=== PATIENT | male | born 1935 | race Caucasian/White ===

== ENCOUNTER 2017-11-01 12:19 | Inpatient (IN) | payer OTHER ==
[~2017-11-01] VITALS: Ht 172.7 cm; Wt 75.3 kg
--- NOTE | ~2017-11-01 | PROC ---
[address] [address] PROCEDURE REPORT Name: SRINIVASA NAVARRO Room: [address] ADM IN M.R.#: [id number] Admission: 11/01/17 Attend Phys: Bhavin Davis MD Discharge: Date of : 33 Report #: [id number] THIS REPORT FOR: //name// For GI procedure, please see the Provation report in Perceptive 7 content. By: 1052Medical Records Staff MIGUELITO /GREGORY
[~2017-11-01 12:19] MED LIST: BIOTIN300 MCG PO; BROMELAINS500 MG PO; CARVEDILOL25 MG PO; CENTRUM SILVER1 EAC2; CINNAMON500 MG PO; CO Q-10100 MG PO; FISH OIL 1,001000 M2 PO; POTASSIUM PO; PREDNISONE 20 M20 MG PO; QUERCETIN DIHYDR1 GM PO; VITAMIN E400 UNIT PO; VITAMINC500 PO
[2017-11-01 12:27] VITALS: BP 184/65
[2017-11-01] MEDS ORDERED: AZITHROMYCIN 2250 MG PO (12:30)
[2017-11-01] MEDS ORDERED: MEDROL DOSPAK21 TA1 PO (12:31)
[2017-11-01] MEDS ORDERED: ALLOPURINOL 10100 M1 PO (12:31)
[2017-11-01] MEDS ORDERED: CLONAZEPAM 1 MG1 M1 PO (12:38)
[2017-11-01 13:03] LABS: HEMATOCRIT 34.6 % (42.0-52.0); HEMOGLOBIN 11.3 gm/dL (14.0-18.0); MCH 27.5 pg (26.0-34.0); MCHC 32.6 g/dL (28.0-37.0); MCV 84.4 fL (80.0-100.0); NUCLEATED RBCS 0 /100WBC; PLATELET COUNT* 280 thou/uL (150-400); RBC 4.09 mil/uL (4.50-6.00); RDW-CV 15.3 % (10.5-14.5); WBC 11.3 thou/uL (4.0-11.0)
[2017-11-01 13:09] LABS: ANION GAP 8 mmol/L (7-16); BUN 25 mg/dL (7-18); CALCIUM 8.1 mg/dL (8.5-10.1); CHLORIDE 97 mmol/L (98-107); CO2 27 mmol/L (21-32); CREATININE 1.3 mg/dL (0.6-1.3); GLUCOSE 114 mg/dL (70-99); POTASSIUM 4.3 mmol/L (3.5-5.1); SODIUM 132 mmol/L (136-145)
[2017-11-01 13:15] LABS: APTT 34.5 Seconds (25.0-31.3); INR 1.1; PROTIME 10.8 Seconds (9.20-11.50)
[2017-11-01 13:17] LABS: ABSOLUTE EOSINOPHILS 0.1 thou/uL (0.0-0.7); ABSOLUTE LYMPHOCYTES 0.8 thou/uL (0.8-5.3); ABSOLUTE MONOCYTES 0.5 thou/uL (0.0-1.2); ABSOLUTE NEUTROPHILS 9.9 thou/uL (1.6-8.1)
[2017-11-01 13:18] LABS: ANISOCYTOSIS 1+; PLATELET ESTIMATE ADEQUATE; POIKILOCYTOSIS 1+
[2017-11-01 13:21] LABS: ALBUMIN 2.3 g/dL (3.4-5.0); ALKALINE PHOSPHATASE 67 U/L (46-116); NT-PRO BRAIN NAT PEPTIDE 1035 pg/mL (<300); SGOT 41 U/L (15-37); SGPT 25 U/L (30-65); TOTAL BILIRUBIN 0.6 mg/dL (<0.1-1.0); TOTAL PROTEIN 6.6 g/dL (6.4-8.2); TROPONIN-I LEVEL <0.06 ng/mL (<0.06)
[2017-11-01 14:12] LABS: URINE BILIRUBIN NEGATIVE (Negative); URINE BLOOD 1+ (Negative); URINE CLARITY CLEAR; URINE COLOR YELLOW; URINE GLUCOSE-RANDOM NEGATIVE (Negative); URINE KETONES TRACE (Negative); URINE LEUKOCYTES-REFLEX NEGATIVE (Negative); URINE NITRITE-REFLEX NEGATIVE (Negative); URINE PROTEIN 1+ (Negative); URINE SPECIFIC GRAVITY 1.015 (1.005-1.030)
[2017-11-01 14:36] LABS: SQUAMOUS 0-3 Few /LPF (0-3); URINE RBC 3-10 Few /HPF (0-2); URINE WBC-REFLEX 0-5 Rare /HPF (0-5)
[2017-11-01 14:37] LABS: BACTERIA-REFLEX None Seen /HPF (None Seen); CASTS None Seen /LPF (None Seen); CRYSTALS None Seen /LPF (None Seen)
[2017-11-01 15:48] VITALS: BP 159/56
[2017-11-01 16:00] VITALS: BP 172/50
--- NOTE | 2017-11-01 17:06 | EKG ---
[place] [address] ELECTROCARDIOGRAM REPORT Name: SRINIVASA NAVARRO Room: [address] ADM IN M.R.#: [id number] Admission: 11/01/17 Attend Phys: Bhavin Davis MD Discharge: Date of : 31 Report #: [id number] THIS REPORT FOR: //name// [facility] ED Test Date: 2017-11-01 Test Time: 12:32:27 Pat Name: SRINIVASA NAVARRO Department: Room: [facility] Gender: Bilingual Kindergarten Teacher: Jair JOHNSON : 1935 Requested By: Orestes Shrestha Order Number: [id number] MD: Pawan Sadler Measurements Intervals [place] Rate: 74 P: 56 [place]: 167 QRS: -16 QRSD: 152 T: 115 QT: 440 QTc: 489 Interpretive Statements Sinus rhythm Probable left atrial enlargement Left bundle branch block Baseline wander in lead(s) V1 Compared to ECG 09/24/2017 05:51:19 No significant changes Electronically Signed On 11-01-2017 17:06:37 VETERINARY POULTRY INSPECTOR by Pawan Sadler [email or web address] <ELECTRONICALLY SIGNED> By: Pawan Sadler MD, FAC 11/01/17 1706 1232 1232 Pawan Sadler MD, [facility] /EPI
--- NOTE | 2017-11-01 17:37 | NUR ---
PATIENT ADMITTED TO ROOM 315 FROM ER. ALERT AND ORIENTED X 4. NO COMPLAINTS OF PAIN. PHOTOS TAKEN PER PROTOCOL OF HEAD AND SHOULDER ABRASION. SCD'S IN PLACE. IVF AND SCHED ABX INFUSED. STEROIDS STARTED FOR PROPHYLAXIS FOR CT CHEST AND ABD TOMORROW. REG DIET ORDERED. FALL RISK PROTOCOL IN PLACE, PATIENT HAS HX FREQUENT FALLS. ORIENTED TO CALL LIGHT. CALL LIGHT WITHIN REACH, WILL CONTINUE TO MONITOR.
[2017-11-02] VITALS: BP 126/87
[2017-11-02 03:50] LABS: ABSOLUTE LYMPHOCYTES 0.9 thou/uL (0.8-5.3); ABSOLUTE MONOCYTES 0.7 thou/uL (0.0-1.2); ABSOLUTE NEUTROPHILS 8.5 thou/uL (1.6-8.1); HEMATOCRIT 26.9 % (42.0-52.0); HEMOGLOBIN 8.7 gm/dL (14.0-18.0); LYMPHOCYTES 9.3 %; MCH 26.6 pg (26.0-34.0); MCHC 32.2 g/dL (28.0-37.0); MCV 82.4 fL (80.0-100.0); MONOCYTES 7.1 %; MPV 8.2 fl. (7.2-11.1); NUCLEATED RBCS 0 /100WBC; PLATELET COUNT* 352 thou/uL (150-400); POLYS 83.6 %; RBC 3.27 mil/uL (4.50-6.00); RDW-CV 16.3 % (10.5-14.5); WBC 10.1 thou/uL (4.0-11.0)
[2017-11-02 03:55] LABS: CALCIUM 8.2 mg/dL (8.5-10.1); CREATININE 0.6 mg/dL (0.6-1.3); POTASSIUM 4.5 mmol/L (3.5-5.1)
--- NOTE | 2017-11-02 04:45 | NUR ---
PATIENT SLEPT WELL DURING THIS SHIFT. PT INCONTINENT OF URINE AND AT TIMES ABLE TO VOID PER URINAL. PT'S DAUGHTER AND GRANDDAUGHTER CAME IN AROUND 2230 TO HAVE DPOA PAPERWORK FILLED OUT. DAUGHTER, ISAI KIRK IS DPOA PER PT REQUEST. FLAG FOOTBALL COACH NOTORIZED PAPERWORK AND COPY PLACED ON CHART. PT AND DAUGHTER REFUSING TO HAVE CT OF ABD/PELVIC DUE TO ALLERGY TO CONTRAST. EXPLAINED TO PT AND DAUGHTER THAT DR HAS ORDERED [facility] TO COUNTERACT ANY REACTION AND PERHAPS THEY SHOULD SPEAK WITH THE DR BEFORE CANCELLING. PT INSISTED HE DID NOT WANT CT WITH CONTRAST. PT ON RA WITH SATS AT 92%. FREQUENTLY USED ITEMS AND CALL LIGHT WITHIN REACH. SIDERAILS UPX4 AND BED ALARM ON. PT TURNED Q2H PER PROTOCAL AND HEELS ELEVATED. WILL CONTINUE TO MONITOR.
[2017-11-02 08:00] VITALS: BP 126/87
--- NOTE | 2017-11-02 15:33 | NUR ---
MET WITH PT TO DISCUSS HOME SITUATION/DC PLANNING. PT LIVES WITH , IS NORMALLY INDEPENDENT AND ACTIVE. DOESN'T NORMALLY USE ANY EQUIPMENT. HE DID VOICE THAT HE'D LIKE A WALKER AT DC. HE HAS SUPPORTIVE FAMILY THAT CAN ASSIST AT DC. PT HAS NOT HAD HH IN THE PAST, DISCUSSED AND HE WOULD LIKE TO THINK ABOUT IT. IF PT NEEDS WALKER AT DC, WILL NEED TO COME THRU [place]. CONTACT AUGUSTA/DIONE AT [phone] FAX [phone] CM TO FOLLOW
[2017-11-02 16:00] VITALS: BP 141/65
--- NOTE | 2017-11-02 19:42 | NUR ---
ASSUMED CARE THIS AM. A/O X 4, DENIES DISCOMFORT, DOES REPORT NONPROD COUGH. VITAL SIGNS STABLE, UP WITH EXT ASSIST OF ONE AND GAIT BELT, UNSTEADY GAIT, GEN WEAKNESS. CAROL DIET WELL, DID HAVE BM X 1 THIS SHIFT, DIGESTED BLOOD ODOR. GI CONSULT PENDING, DROP IN HGB NOTED. BLOOD SUGAR ELEVATED @ 435, INSULIN ADMIN. CONT OF URINE, CAROL IVF WITHOUT INCIDENT, FAMILY AT BEDSIDE MOST OF THIS SHIFT.
[2017-11-02 21:24] VITALS: BP 138/44
[2017-11-02 23:59] VITALS: BP 138/44
[2017-11-03 02:05] LABS: GLYCOHEMOGLOBIN (HGB A1C) 5.9 % (4.8-5.6)
--- NOTE | 2017-11-03 04:32 | NUR ---
PATIENT SLEPT WELL DURIING THIS SHIFT. PT VOIDS PER URINAL WITH NO INCONTINENCE ON THIS SHIFT. PT ABLE TO REPOSITION HIMSELF IN BED. PT ON ROOM AIR. PT WITH FLUIDS INFUSING PER DR ORDER. BLOOD SUGAR AT HS 329; NO TX ORDERED. DAUGHTER CALLED AND WANTED PT WATCHED FOR WITHDRAWALS FROM SOLUMEDRAL STATING HE GETS VERY PARANOID AND AGITATED. PT WAS CALM AND COOPERATIVE DURING THIS SHIFT. FREQUENTLY USED ITEMS AND CALL LIGHT WITHIN REACH. SIDERAILS UPX4 AND BED ALARM ON. WILL CONTINUE TO MONITOR.
[2017-11-03 09:30] VITALS: BP 132/58
[2017-11-03 10:45] LABS: HEMATOCRIT 34.3 % (42.0-52.0); MCHC 32.2 g/dL (28.0-37.0); MCV 83.8 fL (80.0-100.0); MPV 7.6 fl. (7.2-11.1); NUCLEATED RBCS 0 /100WBC; PLATELET COUNT* 315 thou/uL (150-400); RDW-CV 15.4 % (10.5-14.5); WBC 21.6 thou/uL (4.0-11.0)
[2017-11-03 10:46] LABS: HEMOGLOBIN 11.1 gm/dL (14.0-18.0)
[2017-11-03 10:55] LABS: CREATININE 1.3 mg/dL (0.6-1.3); POTASSIUM 3.8 mmol/L (3.5-5.1); TOTAL BILIRUBIN 0.2 mg/dL (<0.1-1.0); TOTAL PROTEIN 6.2 g/dL (6.4-8.2)
[2017-11-03 11:05] LABS: ABSOLUTE LYMPHOCYTES 1.1 thou/uL (0.8-5.3); ABSOLUTE NEUTROPHILS 20.5 thou/uL (1.6-8.1); PLATELET ESTIMATE ADEQUATE
[2017-11-03 16:00] VITALS: BP 122/53
--- NOTE | 2017-11-03 16:51 | NUR ---
PATIENT UP TO CHAIR THIS AM AND AFTERNOON. WALKER AND GAIT BELT UTILZED. IV TO RAC LEAKING THIS AM, REPLACED TO LEFT WRIST SL. OCCULT BLOOD NEGATIVE, DR. LAKE NOTIFIED OF INCREASED HGB. PATIENT TO HAVE EGD ON SATURDAY. NO COMPLAINTS OF PAIN THIS SHIFT. FAMILY HERE THIS MORNING AND AFTERNOON VISITING.
[2017-11-03 21:05] VITALS: BP 131/83
--- NOTE | 2017-11-04 05:22 | NUR ---
PATIENT SLEPT WELL DURING THIS SHIFT. PT ALERT/ORIENTED X4. PT IS CALM AND PLEASANT. PT VOIDS PER URINAL. PT VOIDS PER URINAL. PT IS ON ROOM AIR. PT DENIES NEEDS AT THIS TIME. FREQUENTLY USED ITEMS AND CALL LIGHT WITHIN REACH. SIDERALS UPX4 AND BED ALARM ON. WILL CONTINUE TO MONITOR.
[2017-11-04 07:19] LABS: ABSOLUTE LYMPHOCYTES 1.3 thou/uL (0.8-5.3); ABSOLUTE MONOCYTES 0.5 thou/uL (0.0-1.2); ABSOLUTE NEUTROPHILS 8.9 thou/uL (1.6-8.1); BASOPHILS 0.2 %; EOSINOPHILS 0.2 %; HEMATOCRIT 31.3 % (42.0-52.0); HEMOGLOBIN 10.4 gm/dL (14.0-18.0); LYMPHOCYTES 11.8 %; MCH 27.9 pg (26.0-34.0); MCHC 33.2 g/dL (28.0-37.0); MCV 84.2 fL (80.0-100.0); MONOCYTES 4.6 %; NUCLEATED RBCS 0 /100WBC; PLATELET COUNT* 313 thou/uL (150-400); POLYS 83.2 %; RBC 3.72 mil/uL (4.50-6.00); RDW-CV 15.3 % (10.5-14.5); WBC 10.7 thou/uL (4.0-11.0)
[2017-11-04 07:34] LABS: PREALBUMIN 13.6 mg/dL (18.0-35.7)
[2017-11-04 07:38] LABS: ALBUMIN 1.8 g/dL (3.4-5.0); CALCIUM 7.6 mg/dL (8.5-10.1); CREATININE 1.5 mg/dL (0.6-1.3); POTASSIUM 4.1 mmol/L (3.5-5.1); TOTAL BILIRUBIN 0.2 mg/dL (<0.1-1.0); TOTAL PROTEIN 5.6 g/dL (6.4-8.2)
[2017-11-04 07:50] VITALS: BP 146/59
[2017-11-04 16:00] VITALS: BP 108/51
--- NOTE | 2017-11-04 16:36 | NUR ---
PATIENT A&OX4, ROOM AIR, NO IV ACCESS AT THIS TIME. UP WITH ASSISTX1 WITH WALKER AND GAITBELT.NO C/O PAIN/N/V. C/O SORE SWOLLEN THROAT, COUGHT DROPS PROVIDED. NO OTHER CONCERNS AT THIS TIME. APPROPRIATE AND COOPORATIVE WITH CARE.
[2017-11-04 20:15] VITALS: BP 165/59
[2017-11-05 04:01] VITALS: BP 173/61
[2017-11-05 04:06] LABS: HEMATOCRIT 32.4 % (42.0-52.0); HEMOGLOBIN 10.7 gm/dL (14.0-18.0); MCH 27.6 pg (26.0-34.0); MCHC 32.9 g/dL (28.0-37.0); MCV 83.6 fL (80.0-100.0); MPV 7.4 fl. (7.2-11.1); PLATELET COUNT* 339 thou/uL (150-400); RBC 3.88 mil/uL (4.50-6.00); RDW-CV 15.3 % (10.5-14.5); WBC 11.7 thou/uL (4.0-11.0)
--- NOTE | 2017-11-05 06:45 | NUR ---
PT SLEPT MOST OF SHIFT. ASSESSMENT DOCUMENTED. MEDS GIVEN PER E-MAR. PT REPORTED PAIN IN HIS SHOULDERS AND HANDS, STATING THAT HE WAS "HAVING A GOUT FLARE UP". ORDERS RECIEVED FOR PAIN MEDS AND GIVEN PER E-MAR. NO CONCERNS AT THIS TIME, WILL CONTINUE TO MONTIOR.
[2017-11-05 07:45] VITALS: BP 154/59
[2017-11-05 11:30] VITALS: BP 154/59
[2017-11-05 14:12] LABS: ALBUMIN 2.2 g/dL (3.4-5.0); CALCIUM 7.6 mg/dL (8.5-10.1); CREATININE 1.2 mg/dL (0.6-1.3); POTASSIUM 4.7 mmol/L (3.5-5.1); TOTAL BILIRUBIN 0.2 mg/dL (<0.1-1.0); TOTAL PROTEIN 5.2 g/dL (6.4-8.2); URIC ACID* 2.9 mg/dL (2.6-7.2)
--- NOTE | 2017-11-05 15:00 | NUR ---
MET WITH PT., AND SON TO DISCUSS DISCHARGE PLANNING. PT.FEELS HE NEEDS TO GO TO A SNF TO GET STRONGER BEFORE GOING HOME. HE WOULD LIKE TO GO TO [facility]. SPOKE WITH GORDON AND FAXED HER REFERRAL. POSSIBLE DISCHARGE TOMRROW.
[2017-11-05 15:03] LABS: ABSOLUTE LYMPHOCYTES 0.6 thou/uL (0.8-5.3); ABSOLUTE MONOCYTES 0.2 thou/uL (0.0-1.2); ABSOLUTE NEUTROPHILS 10.9 thou/uL (1.6-8.1); MYELOCYTES 2 %; PROMYELOCYTES 1 %
[2017-11-05 15:05] LABS: ANISOCYTOSIS Occasional; LARGE PLATELETS RARE; PLATELET ESTIMATE ADEQUATE; TOXIC GRANULATION 2+
[2017-11-05 15:57] VITALS: BP 141/65
--- NOTE | 2017-11-05 17:16 | NUR ---
PATIENT A&OX4, ROOM AIR, IV LEFT HAND SALINE LOCK. UP WITH ASSISTX1 WITH WALKER AND GAITBELT. C/O PAIN IN RIGHT HAND RADIATING UP TO RIGHT SHOULDER. PATIENT STATES PAIN IN DO TO GOUT FLAIR UP. PARTIAL RELIEF WITH MEDICATION. NO OTHR CONCERNS AT THIS TIME. APPROPRIATE AND COOPORATIVE WITH CARE.
[2017-11-05 23:29] VITALS: BP 136/53
[2017-11-06 04:49] LABS: ABSOLUTE EOSINOPHILS 0.1 thou/uL (0.0-0.7); ABSOLUTE LYMPHOCYTES 0.8 thou/uL (0.8-5.3); ABSOLUTE MONOCYTES 0.4 thou/uL (0.0-1.2); ABSOLUTE NEUTROPHILS 8.9 thou/uL (1.6-8.1); BASOPHILS 0.3 %; EOSINOPHILS 0.8 %; HEMATOCRIT 31.4 % (42.0-52.0); HEMOGLOBIN 10.4 gm/dL (14.0-18.0); LYMPHOCYTES 7.7 %; MCHC 33.3 g/dL (28.0-37.0); MCV 84.1 fL (80.0-100.0); MONOCYTES 4.1 %; MPV 7.6 fl. (7.2-11.1); NUCLEATED RBCS 0 /100WBC; PLATELET COUNT* 319 thou/uL (150-400); POLYS 87.1 %; RBC 3.74 mil/uL (4.50-6.00); RDW-CV 15.6 % (10.5-14.5); WBC 10.2 thou/uL (4.0-11.0)
[2017-11-06 04:54] LABS: CALCIUM 7.8 mg/dL (8.5-10.1); CREATININE 1.2 mg/dL (0.6-1.3); POTASSIUM 4.4 mmol/L (3.5-5.1)
--- NOTE | 2017-11-06 05:20 | NUR ---
PT SLEPT WELL AFTER RECEIVING HYDROCODONE AT HS. UP TO BSC TO VOID AT HS. HS ACCUCHECK 208, NO INSULIN ORDERED. AM LABS DRAWN. L HAND SL, ABX GIVEN. AOX4. CALL LITE IN EASY REACH, BED ALARM ON FOR SAFETY, ABLE TO USE CALL LITE AND MAKE NEEDS KNOWN. PT ANTICIPATING DISCHARGE HOME TODAY. USING URINAL TO VOID OVERNIGHT.
[2017-11-06 05:29] LABS: PREALBUMIN 15.8 mg/dL (18.0-35.7)
[2017-11-06 09:10] VITALS: BP 166/68
[2017-11-06] MEDS ORDERED: IRON325 PO (12:45)
[2017-11-06] MEDS ORDERED: FLONASE 0.05%50 MCG NASAL (12:46)
[2017-11-06] MEDS ORDERED: MIRALAX17 GM PO (12:48)
[2017-11-06] MEDS ORDERED: PROTONIX40 M1 PO (12:49)
[2017-11-06] MEDS ORDERED: TESSALON PERLE100 MG PO (12:50)
[2017-11-06 12:53] VITALS: BP 166/68
[2017-11-06] MEDS ORDERED: LEVAQUIN 500 M500 M2 PO (13:34)
--- NOTE | 2017-11-06 14:08 | NUR ---
SPOKE WITH ALFREDO AT [facility], THEY HAVE A BED AND CAN ACCEPT PT TODAY INTO A SNF BED, PENDING INSURANCE AUTH. SHE HOPES TO HAVE INSURANCE AUTH THIS AFTERNOON. NURSING UPDATED. [facility] [phone] FAX [phone]
--- NOTE | 2017-11-06 14:40 | S ---
[address] [address] SURGICAL PATH RPT PROCEDURE Name: NORBERT NOLASCO Room: [address] IN M.R.#: [id number] Admission: 11/01/17 Date of : 33 Discharge: Report #: [id number] Path Case #: [id number] PATHOLOGY REPORT COLLECTION DATE: 11/05/2017 RECEIVED DATE: 11/05/2017 SUBMITTING PHYS: Dr. Antoni Jorgensen OTHER PHYS: Dr. Bhavin Barfield SPECIMEN(S) RECEIVED: A.Duodenal biopsy B.Antral erosion biopsy for H. pylori * * * * * * * * * * * * FINAL DIAGNOSIS: A. Duodenal biopsy: - Mild, nonspecific active duodenitis, negative for granulomas and dysplasia. B. Antral erosion biopsy: - Mild chronic antral gastritis, typical of reactive gastropathy (chemical gastritis), negative for Helicobacter pylori organisms, granulomas and dysplasia. (CHERYL:pit; 11/06/2017) COMMENT: Special stain: H. pylori immuno on B. PATHOLOGIST: Rip Rojas M.D. REPORT ELECTRONICALLY SIGNED BY: Rip Rojas M.D. DATE/TIME: 11/06/2017 14:40 * * * * * * * * * * * * GROSS PATHOLOGY: A. Received in formalin labeled "Norbert Nolasco and duodenal biopsy," is a segment of morris soft tissue measuring 0.5 cm in maximum dimension. The specimen is submitted entirely in cassette A1. B. The specimen is received in formalin, labeled "Norbert Nolasoc and antral erosion biopsy", are two morris soft tissue 0.7 and 0.5 cm in greatest dimension, entirely submitted in B1. (SWS; 11/05/2017) CLINICAL HISTORY: Rule out H. pylori INITIAL CPT CODE(S): [place] [address] SURGICAL PATH RPT PROCEDURE Name: NORBERT NOLASCO Room: [address] IN ..#: [id number] Admission: 11/01/17 Date of : 33 Discharge: Report #: [id number] Path Case #: [id number] A; [id number] B; [id number], [id number] Professional services performed by [facility] at [facility] [address] [place] [address] Technical services performed by [facility] at [address] [place] [address], [facility] [address], [place] [address]. [facility] [place] [address] PHONE: [phone] DIRECTOR: Victoriano Aldridge M.D. * * * END OF REPORT * * *
--- NOTE | 2017-11-06 20:00 | NUR ---
PATIENT IS ALERT AND ORIENTED UP STAND BY TO BEDSIDE COMMODE OR USING URINAL AT BEDSIDE. PATIENT HAS HAD NO PAIN TODAY AND VITAL SIGNS HAVE BEEN STABLE TODAY ON ROOM AIR. PATIENT WAS ACCEPTED TO [facility] TODAY BUT THE MESSAGE WAS NOT RECIEVED UNTIL AFTER 1729 AND NO TRANSPORTATION WAS SET UP, SINCE WAITING ON INSURANCE APPROVAL. ALFREDO FROM [facility] ADMISSIONS SAID TO HAVE CASE MANAGEMENT CONTACT ALFREDO TOMORROW.
[2017-11-07] VITALS: BP 140/71
--- NOTE | 2017-11-07 05:58 | NUR ---
PT SLEPT ON AND OFF OVERNIGHT. DENIES PAIN OR PROBLEMS, ANTICIPATING DISCHARGE TO [facility] FOR REHAB TODAY. UP WITH ASSIST AND WALKER, USING URINAL TO VOID OVERNIGHT. NO LABS THIS MORNING. HS ACCUCHECK 328 INSULIN GIVEN AT THAT TIME DUE TO INSULIN NOT BEING GIVEN AT [facility]NER BECAUSE OF EMERGENT SITUATION ON UNIT. NO IV ACCESS. ABLE TO USE CALL LITE AND MAKE NEEDS KNOWN.
--- NOTE | 2017-11-07 08:30 | NUR ---
SPOKE WITH ALFREDO AT [facility], THEY HAVE INSURANCE AUTH AND CAN TAKE PT TODAY. THEIR W/C VAN CAN COME GET PT AT 1130 TODAY. SW NOTIFIED AND WILL LET NURSING KNOW OF TIME OF PICK-UP. CHART WAS COPIED YESTERDAY TO GO WITH PATIENT.
[2017-11-07 08:55] VITALS: BP 176/78
[2017-11-07 11:12] VITALS: BP 176/78
--- NOTE | 2017-11-19 16:26 | CON ---
[address] [address] CONSULTATION Name: SRINIVASA NAVARRO Room: [address] IN M.R.#: [id number] Admission: 11/01/17 Attend Phys: Bhavin Davis MD Discharge: 11/07/17 Date of : 33 Report #: [id number] THIS REPORT FOR: //name// CC: Bhavin Barfield DATE OF SERVICE: 11/03/2017 REASON FOR CONSULT: Iron deficiency anemia. This is an 82-year-old male who was admitted to hospital after he was discharged less than a week ago. He presented with weakness and frequent falls. In his previous admission, he had productive cough and was receiving antibiotics. The patient reports that after taking his second fall 2 nights in a row, his kids decided to bring him to the hospital. During hospitalization, he was found to have an iron deficiency anemia. His hemoglobin has been stable at 11, but his iron saturation is 5. His B12 and folic acid are within normal limits. He denies hematochezia, melena, upper GI symptoms including nausea, vomiting, dyspepsia, dysphagia and odynophagia. PAST MEDICAL HISTORY: Significant for history of heart disease, hemorrhoid operation, gout, sinus infection, TURP, and anxiety. ALLERGIES: Significant to contrast and diphenhydramine. MEDICATION: Please refer to hospital MAR. SOCIAL HISTORY: The patient lives at home with his . Denies tobacco or alcohol use. FAMILY HISTORY: Noncontributory. PHYSICAL EXAMINATION: VITAL SIGNS: Reveals blood pressure of 132/58, pulse of 63, respirations 18, temperature 97.5. LUNGS: Clear. CARDIOVASCULAR: Regular. ABDOMEN: Soft, nontender, nondistended. Bowel sounds are positive. NEUROLOGIC: The patient is alert, oriented x 3. LABS: Reveal sodium of 134, potassium 3.8, BUN is 30, creatinine 1.3, glucose is 304. Liver function tests all within normal limits. Albumin is 2.0. BNP is 1035. Iron saturation is 5%, iron level is 14, INR is 1.1. WBC is 21.6 with hemoglobin of 11.1 and platelets of 315. IMAGING: CT of abdomen and pelvis was obtained in admission. [place] [address] CONSULTATION Name: [facility] Room: [address] IN [facility].#: [id number] Admission: 11/01/17 Attend Phys: Bhavin Davis MD Discharge: 11/07/17 Date of : 33 Report #: [id number] acute process noted. ASSESSMENT AND PLAN: The patient with iron deficiency anemia who reports he had a colonoscopy several years ago. Since he has heme-negative stools, we will consider upper endoscopy prior to his discharge. Meanwhile, we will resolve his leukocytosis and replace his iron. I explained to him that iron can make him more constipated. So, he may want to take a bowel regimen with it. <ELECTRONICALLY SIGNED> By: Antoni Jorgensen MD 11/19/17 1626 1357 [id number] Jorgensen MD /nt
== END 2017-11-07 11:30 | DRG 177 ==
LOC: M.ERS 12:19 → M.3W 15:07 → M.TBA-ER 15:07 → M.3W 15:47
PROVIDERS: Emergency Medicine; Internal Medicine Gastroenterology; ADMIT Internal Medicine
PROC: 0DB68ZX Excision of Stomach, Via Natural or Artificial Opening Endoscopic, Diagnostic (ICD-10-PCS; principal; 2017-11-05)
PROC: 0DB98ZX Excision of Duodenum, Via Natural or Artificial Opening Endoscopic, Diagnostic (ICD-10-PCS; principal; 2017-11-05)
DX: J15.6 Pneumonia due to other Gram-negative bacteria (principal); K26.4 Chronic or unspecified duodenal ulcer with hemorrhage; G93.40 Encephalopathy, unspecified; K29.71 Gastritis, unspecified, with bleeding; E87.1 Hypo-osmolality and hyponatremia; J44.1 Chronic obstructive pulmonary disease with (acute) exacerbation; J01.91 Acute recurrent sinusitis, unspecified; M10.9 Gout, unspecified; F41.9 Anxiety disorder, unspecified; D50.9 Iron deficiency anemia, unspecified; E86.0 Dehydration; M19.90 Unspecified osteoarthritis, unspecified site; K21.0 Gastro-esophageal reflux disease with esophagitis; K44.9 Diaphragmatic hernia without obstruction or gangrene; Z88.8 Allergy status to other drugs, medicaments and biological substances; Z91.041 Radiographic dye allergy status; Z79.899 Other long term (current) drug therapy

== ENCOUNTER 2018-01-01 10:48 | Emergency (ER) | payer OTHER ==
[~2018-01-01] VITALS: Ht 172.7 cm; Wt 90.7 kg
[~2018-01-01 10:48] MED LIST changes: +ALLOPURINOL 10100 M1 PO; +AZITHROMYCIN 2250 MG PO; +CLONAZEPAM 1 MG1 M1 PO; +FLONASE 0.05%50 MCG NASAL; +IRON325 PO; +LEVAQUIN 500 M500 M2 PO; +MEDROL DOSPAK21 TA1 PO; +MIRALAX17 GM PO; +PROTONIX40 M1 PO; +TESSALON PERLE100 MG PO
[2018-01-01] MEDS ORDERED: PREDNISONE 5 MG5 M1 PO (11:00)
[2018-01-01 11:18] LABS: HEMATOCRIT 32.6 % (42.0-52.0); HEMOGLOBIN 10.8 gm/dL (14.0-18.0); MCH 28.4 pg (26.0-34.0); MCHC 33.3 g/dL (28.0-37.0); MCV 85.5 fL (80.0-100.0); MPV 7.5 fl. (7.2-11.1); NUCLEATED RBCS 0 /100WBC; PLATELET COUNT* 269 thou/uL (150-400); RBC 3.81 mil/uL (4.50-6.00); RDW-CV 16.6 % (10.5-14.5); WBC 11.3 thou/uL (4.0-11.0)
[2018-01-01 11:23] LABS: ANION GAP 7 mmol/L (7-16); BUN 31 mg/dL (7-18); CALCIUM 8.3 mg/dL (8.5-10.1); CHLORIDE 98 mmol/L (98-107); CO2 28 mmol/L (21-32); CREATININE 1.3 mg/dL (0.6-1.3); GLUCOSE 172 mg/dL (70-99); POTASSIUM 3.9 mmol/L (3.5-5.1); SODIUM 133 mmol/L (136-145)
[2018-01-01 11:24] LABS: APTT 29.9 Seconds (25.0-31.3)
[2018-01-01 11:33] LABS: ABSOLUTE LYMPHOCYTES 6.1 thou/uL (0.8-5.3); ABSOLUTE MONOCYTES 0.5 thou/uL (0.0-1.2); ABSOLUTE NEUTROPHILS 4.7 thou/uL (1.6-8.1); ATYPICAL LYMPHS 4 %; PLATELET ESTIMATE ADEQUATE
[2018-01-01 11:34] LABS: ALBUMIN 2.7 g/dL (3.4-5.0); ALKALINE PHOSPHATASE 59 U/L (46-116); NT-PRO BRAIN NAT PEPTIDE 1558 pg/mL (<300); SGOT 18 U/L (15-37); SGPT 14 U/L (30-65); TOTAL BILIRUBIN 0.3 mg/dL (<0.1-1.0); TOTAL PROTEIN 6.6 g/dL (6.4-8.2); TROPONIN-I LEVEL <0.06 ng/mL (<0.06)
[2018-01-01 12:05] LABS: URINE BILIRUBIN NEGATIVE (Negative); URINE BLOOD NEGATIVE (Negative); URINE CLARITY CLEAR; URINE COLOR YELLOW; URINE GLUCOSE-RANDOM NEGATIVE (Negative); URINE KETONES NEGATIVE (Negative); URINE LEUKOCYTES-REFLEX NEGATIVE (Negative); URINE NITRITE-REFLEX NEGATIVE (Negative); URINE PROTEIN NEGATIVE (Negative); URINE UROBILINOGEN 0.2 E.U./dl (0.2-1.0)
[2018-01-01 13:46] VITALS: BP 145/70
--- NOTE | 2018-01-01 16:38 | EKG ---
[place] [address] ELECTROCARDIOGRAM REPORT Name: MELANIESRINIVASA [id number] Admission: 01/01/18 Attend Phys: Discharge: 01/01/18 Date of : 33 Report #: [id number] THIS REPORT FOR: //name// [facility] Test Date: 2018-01-01 Test Time: 11:07:23 Pat Name: SRINIVASA NAVARRO Department: Room: Gender: M Seafood Fisherman: Jair JOHNSON : 1935 Requested By: Aram Zhang Order Number: [id number] MD: Davie Ennis Measurements Intervals [place] Rate: 55 P: 27 AL: 175 QRS: -24 QRSD: 156 T: 140 QT: 461 QTc: 441 Interpretive Statements Sinus bradycardia Ventricular premature complex Left bundle branch block Compared to ECG 11/01/2017 12:32:27 Ventricular premature complex(es) now present Electronically Signed On 01-01-2018 16:38:35 IT BUSINESS ANALYST by Davie Ennis [email or web address] <ELECTRONICALLY SIGNED> By: Davie Ennis MD, [facility] 01/01/18 1638 1107 06 Davie Ennis MD, [facility] /EPI
== END 2018-01-01 13:49 | disposition short-term general hospital (02) ==
LOC: M.ERS 10:48
PROVIDERS: Family Medicine
DX: I62.00 Nontraumatic subdural hemorrhage, unspecified (principal); M10.9 Gout, unspecified; Z91.041 Radiographic dye allergy status; Z88.8 Allergy status to other drugs, medicaments and biological substances

== ENCOUNTER 2018-01-31 21:29 | Emergency (ER) | payer OTHER ==
[~2018-01-31] VITALS: Ht 170.2 cm; Wt 78.9 kg
[~2018-01-31 21:29] MED LIST changes: +PREDNISONE 5 MG5 M1 PO
[2018-01-31] MEDS ORDERED: MAGOX 400400 MG PO (21:50)
[2018-01-31] MEDS ORDERED: CLONAZEPAM 1 MG1 M1 PO (21:50)
[2018-01-31] MEDS ORDERED: FOLIC ACID1 MG PO (21:50)
[2018-01-31] MEDS ORDERED: METFORMIN HCL500 MG PO (21:51)
[2018-01-31] MEDS ORDERED: PREDNISONE 5 MG5 M1 PO (21:52)
[2018-01-31] MEDS ORDERED: PROTONIX40 M1 PO (21:52)
[2018-01-31] MEDS ORDERED: PROBIOTIC1 EAC1 PO (21:53)
[2018-01-31] MEDS ORDERED: VITAMIN D3400 UNIT PO (21:53)
[2018-01-31] MEDS ORDERED: DOXYCYCLINE 10100 MG PO (21:53)
[2018-01-31] MEDS ORDERED: KEPPRA750 MG PO (21:54)
[2018-01-31] MEDS ORDERED: IPRAT-ALBUT 0.5-3 ML IH (21:54)
[2018-01-31] MEDS ORDERED: TYLENOL325 MG PO (21:54)
[2018-01-31] MEDS ORDERED: DILANTIN100 MG PO (21:54)
[2018-01-31] MEDS ORDERED: GABAPENTIN 100100 MG PO (21:55)
[2018-01-31] MEDS ORDERED: LASIX 40 MG TAB40 M2 PO (21:55)
[2018-01-31] MEDS ORDERED: ROBAXIN 750 MG750 M1 PO (21:55)
[2018-01-31 22:09] LABS: HEMATOCRIT 33.7 % (42.0-52.0); HEMOGLOBIN 11.1 gm/dL (14.0-18.0); MCH 28.1 pg (26.0-34.0); MCHC 33.1 g/dL (28.0-37.0); MCV 84.8 fL (80.0-100.0); MPV 6.7 fl. (7.2-11.1); NUCLEATED RBCS 0 /100WBC; PLATELET COUNT* 318 thou/uL (150-400); RBC 3.97 mil/uL (4.50-6.00); RDW-CV 16.5 % (10.5-14.5); WBC 12.5 thou/uL (4.0-11.0)
[2018-01-31 22:27] LABS: ANION GAP 9 mmol/L (7-16); BUN 33 mg/dL (7-18); CALCIUM 8.6 mg/dL (8.5-10.1); CHLORIDE 99 mmol/L (98-107); CO2 30 mmol/L (21-32); CREATININE 1.7 mg/dL (0.6-1.3); GLUCOSE 197 mg/dL (70-99); SODIUM 138 mmol/L (136-145)
[2018-01-31 22:32] LABS: ABSOLUTE BASOPHILS 0.1 thou/uL (0.0-0.2); ABSOLUTE EOSINOPHILS 0.3 thou/uL (0.0-0.7); ABSOLUTE MONOCYTES 0.4 thou/uL (0.0-1.2); ABSOLUTE NEUTROPHILS 10.8 thou/uL (1.6-8.1)
[2018-01-31 22:33] LABS: PLATELET ESTIMATE ADEQUATE
[2018-01-31 22:38] LABS: ALBUMIN 2.8 g/dL (3.4-5.0); ALKALINE PHOSPHATASE 116 U/L (46-116); NT-PRO BRAIN NAT PEPTIDE 563 pg/mL (<300); SGOT 23 U/L (15-37); SGPT 27 U/L (30-65); TOTAL BILIRUBIN 0.2 mg/dL (<0.1-1.0); TOTAL PROTEIN 6.8 g/dL (6.4-8.2); TROPONIN-I LEVEL <0.06 ng/mL (<0.06)
[2018-01-31 23:22] LABS: URINE BILIRUBIN NEGATIVE (Negative); URINE BLOOD TRACE (Negative); URINE CLARITY CLEAR; URINE COLOR YELLOW; URINE GLUCOSE-RANDOM NEGATIVE (Negative); URINE KETONES NEGATIVE (Negative); URINE LEUKOCYTES-REFLEX NEGATIVE (Negative); URINE NITRITE-REFLEX NEGATIVE (Negative); URINE PROTEIN NEGATIVE (Negative); URINE UROBILINOGEN 0.2 E.U./dl (0.2-1.0)
[2018-02-01] MEDS ORDERED: RESTORIL15 M1 PO (00:20)
[2018-02-01 00:34] VITALS: BP 165/67
--- NOTE | 2018-02-01 12:38 | EKG ---
[place] [address] ELECTROCARDIOGRAM REPORT Name: SRINIVASA NAVARRO [facility] [id number] Admission: 01/31/18 Attend Phys: Discharge: 02/01/18 Date of : 33 Report #: [id number] THIS REPORT FOR: //name// [facility] ED Test Date: 2018-01-31 Test Time: 22:07:56 Pat Name: SRINIVASA NAVARRO Department: Room: Gender: M Quarryman: CHANI : 1935 Requested By: Johnna Santoyo Order Number: [id number] MD: Flynn Wagner Measurements Intervals [place] Rate: 77 P: 42 [place]: 186 QRS: -18 QRSD: 145 T: 171 QT: 408 QTc: 462 Interpretive Statements Sinus rhythm Probable left atrial enlargement Left bundle branch block Compared to ECG 01/01/2018 11:07:23 Sinus bradycardia no longer present Ventricular premature complex(es) no longer present Electronically Signed On 02-01-2018 12:38:40 CDT by Flynn Wagner [email or web address] <ELECTRONICALLY SIGNED> By: Flynn Wagner MD, FAC 02/01/18 1238 06 06 Flynn Wagner MD, [facility] /EPI
== END 2018-02-01 00:35 | disposition home or self-care (01) ==
LOC: M.ERS 21:29
PROVIDERS: Nurse Practitioner
DX: M25.512 Pain in left shoulder (principal); F51.01 Primary insomnia; Z91.041 Radiographic dye allergy status; Z88.8 Allergy status to other drugs, medicaments and biological substances

== ENCOUNTER 2018-02-28 16:12 | Emergency (ER) | payer OTHER ==
[~2018-02-28] VITALS: Ht 170.2 cm; Wt 78.9 kg
[~2018-02-28 16:12] MED LIST changes: +DILANTIN100 MG PO; +DOXYCYCLINE 10100 MG PO; +FOLIC ACID1 MG PO; +GABAPENTIN 100100 MG PO; +IPRAT-ALBUT 0.5-3 ML IH; +KEPPRA750 MG PO; +LASIX 40 MG TAB40 M2 PO; +MAGOX 400400 MG PO; +METFORMIN HCL500 MG PO; +PROBIOTIC1 EAC1 PO; +RESTORIL15 M1 PO; +ROBAXIN 750 MG750 M1 PO; +TYLENOL325 MG PO; +VITAMIN D3400 UNIT PO
[2018-02-28] MEDS ORDERED: CELERY SEED PO (16:48)
[2018-02-28] MEDS ORDERED: CYCLOBENZAPRINE5 MG PO (16:49)
[2018-02-28 16:51] LABS: HEMATOCRIT 37.1 % (42.0-52.0); HEMOGLOBIN 12.1 gm/dL (14.0-18.0); MCH 28.1 pg (26.0-34.0); MCHC 32.6 g/dL (28.0-37.0); MCV 86.2 fL (80.0-100.0); MPV 7.6 fl. (7.2-11.1); NUCLEATED RBCS 0 /100WBC; PLATELET COUNT* 245 thou/uL (150-400); RDW-CV 16.9 % (10.5-14.5); WBC 12.3 thou/uL (4.0-11.0)
[2018-02-28] MEDS ORDERED: METHOTREXATE 22.5 MG PO (16:51)
[2018-02-28] MEDS ORDERED: TURMERIC PO (16:53)
[2018-02-28] MEDS ORDERED: VOLTAREN GEL 1100 G2 TOP (16:55)
[2018-02-28] MEDS ORDERED: COLACE100 MG PO (16:55)
[2018-02-28] MEDS ORDERED: IBUPROFEN 200200 M1 PO (16:57)
[2018-02-28] MEDS ORDERED: MIRALAX17 GM PO (16:59)
[2018-02-28 17:00] LABS: ANION GAP 9 mmol/L (7-16); BUN 33 mg/dL (7-18); CALCIUM 8.7 mg/dL (8.5-10.1); CHLORIDE 103 mmol/L (98-107); CO2 29 mmol/L (21-32); CREATININE 1.4 mg/dL (0.6-1.3); GLUCOSE 113 mg/dL (70-99); SODIUM 141 mmol/L (136-145)
[2018-02-28] MEDS ORDERED: PREPARATION H C51 G1 TOP (17:00)
[2018-02-28] MEDS ORDERED: ACCU-CHEK1 EAC1 (17:02)
[2018-02-28 17:10] LABS: ALBUMIN 3.2 g/dL (3.4-5.0); ALKALINE PHOSPHATASE 91 U/L (46-116); LIPASE 168 U/L (73-393); NT-PRO BRAIN NAT PEPTIDE 1697 pg/mL (<300); SGOT 22 U/L (15-37); SGPT 23 U/L (30-65); TOTAL BILIRUBIN 0.2 mg/dL (<0.1-1.0); TROPONIN-I LEVEL <0.06 ng/mL (<0.06)
[2018-02-28 17:17] LABS: ABSOLUTE EOSINOPHILS 0.9 thou/uL (0.0-0.7); ABSOLUTE LYMPHOCYTES 0.7 thou/uL (0.8-5.3); ABSOLUTE NEUTROPHILS 9.7 thou/uL (1.6-8.1); ATYPICAL LYMPHS 1 %; PLATELET ESTIMATE ADEQUATE
[2018-02-28 17:40] VITALS: BP 200/77
--- NOTE | 2018-03-01 17:25 | EKG ---
[place] [address] ELECTROCARDIOGRAM REPORT Name: HAYDANETTESRINIVASA Valerio Room: [facility]#: [id number] Admission: 02/28/18 Attend Phys: Discharge: 02/28/18 Date of : 31 Report #: [id number] THIS REPORT FOR: //name// [facility] ED Test Date: 2018-02-28 Test Time: 16:14:17 Pat Name: SRINIVASA NAVARRO Department: Room: Gender: Resource Recovery Engineer: Jair JOHNSON : 1935 Requested By: Camacho Palomino Order Number: [id number] MD: Maycol Prieto Measurements Intervals [place] Rate: 74 P: 33 AR: 185 QRS: -17 QRSD: 147 T: 149 QT: 449 QTc: 499 Interpretive Statements Sinus rhythm Probable left atrial enlargement Left bundle branch block Compared to ECG 01/31/2018 22:07:56 No significant changes Electronically Signed On 03-01-2018 17:25:09 CDT by Maycol Prieto [email or web address] <ELECTRONICALLY SIGNED> By: Maycol Prieto MD, [facility] 03/01/18 1725 1614 1614 Maycol Prieto MD, FAC /EPI
== END 2018-02-28 17:40 | disposition home or self-care (01) ==
LOC: M.ERS 16:12
PROVIDERS: Emergency Medicine
DX: M54.9 Dorsalgia, unspecified (principal); M25.511 Pain in right shoulder; Z91.041 Radiographic dye allergy status; Z88.8 Allergy status to other drugs, medicaments and biological substances

== ENCOUNTER 2018-06-08 14:13 | Observation (INO) | payer OTHER ==
[~2018-06-08] VITALS: Ht 170.2 cm; Wt 84.8 kg
[~2018-06-08 14:13] MED LIST changes: +ACCU-CHEK1 EAC1; +CELERY SEED PO; +COLACE100 MG PO; +CYCLOBENZAPRINE5 MG PO; +IBUPROFEN 200200 M1 PO; +METHOTREXATE 22.5 MG PO; +PREPARATION H C51 G1 TOP; +TURMERIC PO; +VOLTAREN GEL 1100 G2 TOP
[2018-06-08 14:17] VITALS: BP 179/55
[2018-06-08] MEDS ORDERED: LISINOPRIL10 MG PO (14:23)
[2018-06-08 14:30] LABS: HEMATOCRIT 31.4 % (42.0-52.0); HEMOGLOBIN 10.6 gm/dL (14.0-18.0); MCHC 33.8 g/dL (28.0-37.0); MCV 91.5 fL (80.0-100.0); MPV 7.4 fl. (7.2-11.1); NUCLEATED RBCS 0 /100WBC; PLATELET COUNT* 230 thou/uL (150-400); RBC 3.43 mil/uL (4.50-6.00); RDW-CV 18.6 % (10.5-14.5); WBC 10.2 thou/uL (4.0-11.0)
[2018-06-08 14:41] LABS: APTT 28.5 Seconds (25.0-31.3); PROTIME 10.1 Seconds (9.20-11.50)
[2018-06-08 14:58] LABS: ANION GAP 6 mmol/L (7-16); BUN 50 mg/dL (7-18); CALCIUM 8.3 mg/dL (8.5-10.1); CHLORIDE 107 mmol/L (98-107); CO2 28 mmol/L (21-32); CREATININE 2.2 mg/dL (0.6-1.3); GLUCOSE 152 mg/dL (70-99); POTASSIUM 4.8 mmol/L (3.5-5.1); SODIUM 141 mmol/L (136-145)
[2018-06-08 15:04] LABS: ABSOLUTE LYMPHOCYTES 0.8 thou/uL (0.8-5.3); ABSOLUTE MONOCYTES 0.2 thou/uL (0.0-1.2); ABSOLUTE NEUTROPHILS 9.2 thou/uL (1.6-8.1); ANISOCYTOSIS 1+; PLATELET ESTIMATE ADEQUATE
[2018-06-08 15:17] LABS: ALBUMIN 3.2 g/dL (3.4-5.0); ALKALINE PHOSPHATASE 53 U/L (46-116); CK-MB MASS 0.7 ng/mL (<0.5-3.6); LIPASE 229 U/L (73-393); MAGNESIUM 2.3 mg/dL (1.8-2.4); NT-PRO BRAIN NAT PEPTIDE 519 pg/mL (<300); SGOT 18 U/L (15-37); SGPT 16 U/L (30-65); TOTAL BILIRUBIN 0.4 mg/dL (<0.1-1.0); TROPONIN-I LEVEL <0.06 ng/mL (<0.06)
[2018-06-08 17:16] VITALS: BP 163/56
[2018-06-08 18:15] VITALS: BP 174/65
[2018-06-08 20:00] VITALS: BP 189/71
[2018-06-09] VITALS: BP 186/75
[2018-06-09 04:39] VITALS: BP 152/62
[2018-06-09 07:53] VITALS: BP 172/70
[2018-06-09 09:40] VITALS: BP 172/70
[2018-06-09 09:47] LABS: CALCIUM 8.2 mg/dL (8.5-10.1); CREATININE 1.9 mg/dL (0.6-1.3); POTASSIUM 4.3 mmol/L (3.5-5.1)
--- NOTE | 2018-06-09 10:27 | EKG ---
[place] [address] ELECTROCARDIOGRAM REPORT Name: SRINIVASA NAVARRO Room: [address] M.R.#: [id number] Admission: 06/08/18 Attend Phys: Cleveland Guzman MD Discharge: Date of : 31 Report #: [id number] THIS REPORT FOR: //name// [facility] ED Test Date: 2018-06-08 Test Time: 14:19:12 Pat Name: SRINIVASA NAVARRO Department: Room: [facility] Gender: Car Salter: Jair JOHNSON : 1935 Requested By: Aram Zhang Order Number: [id number] MD: Davie Ennis Measurements Intervals [place] Rate: 62 P: [place]: QRS: -9 QRSD: 152 T: 145 QT: 442 QTc: 449 Interpretive Statements sinus rhythm Left bundle branch block Compared to ECG 02/28/2018 16:14:17 no change Electronically Signed On 06-09-2018 10:26:59 CDT by Davie Ennis [email or web address] <ELECTRONICALLY SIGNED> By: Davie Ennis MD, [facility] 06/09/18 1026 1419 1419 Davie Ennis MD, [facility] /EPI
--- NOTE | 2018-06-09 10:35 | EKG ---
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
--- NOTE | 2018-06-09 18:22 | CON ---
[address] [address] CONSULTATION Name: SRINIVASA NAVARRO Room: [address] Sutart Perdomo#: [id number] Admission: 06/08/18 Attend Phys: Cleveland Guzman MD Discharge: 06/09/18 Date of : 31 Report #: [id number] THIS REPORT FOR: //name// CC: Franklin Guzman DATE OF SERVICE: 06/09/2018 HISTORY OF PRESENT ILLNESS: The patient is an 82-year-old white male who I was asked to see in the hospital today after he complained of back pain. The patient states that in the past he was told that he had an abnormal ECG. He was sent to [facility] on the [place], where he was told they found nothing wrong with his heart. He was told that he had an irregular heartbeat. He has had a stress test years ago. The patient has had several hospitalizations here at [facility]. He was actually admitted here last September with gout. He had an echocardiogram done at that time that showed normal left ventricular function, left ventricular hypertrophy, and mild mitral regurgitation. The patient was also here at [facility] in October with a cough and was felt to have sinusitis. He does have a history of frequent falls. The patient came to the Emergency Room yesterday complaining of a sharp pain under his right shoulder blade. It was worse with a deep breath. He denied any fever or cough. He stays very active and denies exertional chest pain, dyspnea on exertion, palpitations, syncope. He does have a history of falls and apparently fell and struck his head last year and was admitted to [facility] about 6 months ago and was told there was a small amount of brain bleeding, but he did not require surgery. The patient denied any bleeding or syncope. PAST MEDICAL HISTORY: He has had previous hemorrhoidectomy, prostate surgery, knee surgery, eye surgery, hypertension, diabetes. MEDICATIONS: On admission included Lasix, diclofenac, carvedilol, allopurinol, metformin, DuoNeb treatments, methotrexate, lisinopril. ALLERGIES: HE HAS INTOLERANCE TO IV CONTRAST. FAMILY HISTORY: Negative for heart disease. SOCIAL HISTORY: He is , lives with his outside [place]. 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 Quit smoking years ago, rarely drinks alcohol. REVIEW OF SYSTEMS: He has had no history of stroke, asthma, peptic ulcer disease, liver disease, kidney disease, cancer, psychiatric illness, chronic skin condition. PHYSICAL EXAMINATION: [place] [address] CONSULTATION Name: SRINIVASA NAVARRO Room: [address] Stuart Perdomo#: [id number] Admission: 06/08/18 Attend Phys: Cleveland Guzman MD Discharge: 06/09/18 Date of : 31 Report #: [id number] GENERAL: Revealed an elderly male, lying in bed. He appeared in no acute distress. VITAL SIGNS: He had a blood pressure of 150/70, his pulse is 68. He was afebrile. HEENT: He is anicteric. Conjunctivae pink. Mucous membranes moist. NECK: Veins nondistended. No carotid bruits. Neck was supple. CHEST: Clear to auscultation. CARDIAC: Regular rate and rhythm, grade 2 systolic ejection murmur. ABDOMEN: Soft. EXTREMITIES: Had no edema. Dorsalis pedis pulse 2+ bilaterally. SKIN: Warm, dry. NEUROLOGIC: Nonfocal. LYMPH: No adenopathy. MUSCULOSKELETAL: No joint effusion. LABORATORY DATA: His ECG shows a sinus rhythm with left bundle branch block. His workup so far, he has had a chest x-ray that showed normal heart size, clear lung grace. He had a CT scan of the chest without contrast that showed no acute abnormality. He had a lung V/Q scan performed that was low probability for pulmonary embolus. IMPRESSION AND RECOMMENDATIONS: 1. Back pain. Pleuritic character. Consider nonsteroidal anti-inflammatory drugs. 2. Hypertension. The patient is on ANNA inhibitor. 3. Diabetes. 4. History of falls. The patient apparently has had a previous subdural hematoma. 5. Glucose intolerance. 6. History of CONTRAST ALLERGY. I would recommend no further cardiac evaluation. <ELECTRONICALLY SIGNED> By: Davie Ennis MD, [facility] 06/09/18 1822 0803 1305Davicarl Ennis MD, FAC /nt
== END 2018-06-09 11:20 | disposition home or self-care (01) ==
LOC: M.ERS 14:13 → M.2W 16:26 → M.TBA-ER 16:26 → M.2W 17:25
PROVIDERS: Family Medicine; Internal Medicine
DX: R07.89 Other chest pain (principal); N17.9 Acute kidney failure, unspecified; I13.0 Hypertensive heart and chronic kidney disease with heart failure and stage 1 through stage 4 chronic kidney disease, or unspecified chronic kidney disease; E11.22 Type 2 diabetes mellitus with diabetic chronic kidney disease; I50.9 Heart failure, unspecified; N18.3 Chronic kidney disease, stage 3 (moderate); M06.9 Rheumatoid arthritis, unspecified; E86.9 Volume depletion, unspecified; M54.9 Dorsalgia, unspecified; M10.9 Gout, unspecified; E74.39 Other disorders of intestinal carbohydrate absorption; E66.9 Obesity, unspecified; Z68.29 Body mass index [BMI] 29.0-29.9, adult; Z87.891 Personal history of nicotine dependence; Z91.041 Radiographic dye allergy status; Z91.81 History of falling; Z79.84 Long term (current) use of oral hypoglycemic drugs; Z98.890 Other specified postprocedural states

== ENCOUNTER 2018-07-07 12:51 | Emergency (ER) | payer OTHER ==
[~2018-07-07] VITALS: Ht 172.7 cm; Wt 83.5 kg
[~2018-07-07 12:51] MED LIST changes: +LISINOPRIL10 MG PO
[2018-07-07 13:36] LABS: HEMATOCRIT 32.8 % (42.0-52.0); HEMOGLOBIN 10.8 gm/dL (14.0-18.0); MCH 30.4 pg (26.0-34.0); MCHC 33.1 g/dL (28.0-37.0); MCV 91.9 fL (80.0-100.0); MPV 7.2 fl. (7.2-11.1); NUCLEATED RBCS 0 /100WBC; PLATELET COUNT* 235 thou/uL (150-400); RBC 3.56 mil/uL (4.50-6.00); RDW-CV 17.9 % (10.5-14.5); WBC 13.7 thou/uL (4.0-11.0)
[2018-07-07 13:42] LABS: CALCIUM 8.4 mg/dL (8.5-10.1); POTASSIUM 4.5 mmol/L (3.5-5.1)
[2018-07-07 13:54] LABS: ALBUMIN 3.3 g/dL (3.4-5.0); TOTAL BILIRUBIN 0.7 mg/dL (<0.1-1.0); TOTAL PROTEIN 6.8 g/dL (6.4-8.2)
[2018-07-07 14:33] LABS: ABSOLUTE EOSINOPHILS 0.1 thou/uL (0.0-0.7); ABSOLUTE LYMPHOCYTES 0.3 thou/uL (0.8-5.3); ABSOLUTE MONOCYTES 0.5 thou/uL (0.0-1.2); ABSOLUTE NEUTROPHILS 12.7 thou/uL (1.6-8.1); ANISOCYTOSIS Occasional; PLATELET ESTIMATE ADEQUATE
[2018-07-07 14:34] LABS: HYPOCHROMASIA Occasional
[2018-07-07] MEDS ORDERED: VENTOLIN HFA 1818 GM INH ×2 (14:45→14:48)
[2018-07-07] MEDS ORDERED: TESSALON PERLE100 MG PO (14:46)
[2018-07-07] MEDS ORDERED: ZPAK PO (14:46)
--- NOTE | 2018-07-07 15:15 | EKG ---
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: JOSELINE : 1935 Requested By: Stephane Melton Order Number: [id number] MD: Pawan Sadler Measurements Intervals [place] Rate: 66 P: 39 [place]: 179 QRS: -18 QRSD: 150 T: 159 QT: 439 QTc: 460 Interpretive Statements Sinus rhythm Probable left atrial enlargement Left bundle branch block Compared to ECG 06/09/2018 09:04:11 No significant changes Electronically Signed On 07-07-2018 15:15:31 CDT by Pawan Sadler [email or web address] <ELECTRONICALLY SIGNED> By: Pawan Sadler MD, [facility] 07/07/18 1515 1358 1358 Pawan Sadler MD, [facility]ACC /EPI
[2018-07-07 15:20] VITALS: BP 160/58
== END 2018-07-07 15:23 | disposition home or self-care (01) ==
LOC: M.ERS 12:51
PROVIDERS: Nurse Practitioner Family
DX: J18.9 Pneumonia, unspecified organism (principal); I10 Essential (primary) hypertension; E11.9 Type 2 diabetes mellitus without complications; Z79.899 Other long term (current) drug therapy; Z88.8 Allergy status to other drugs, medicaments and biological substances; Z91.041 Radiographic dye allergy status

== ENCOUNTER → 2018-07-18 | Outpatient (CLI) | payer OTHER ==
[~2018-07-18] MED LIST changes: +CINNAMON PLUS1 EACH PO; +TYLENOL EXTRA500 MG PO; +VENTOLIN HFA 1818 GM INH; +ZPAK PO
[2018-07-18 11:54] LABS: HEMATOCRIT 32.9 % (42.0-52.0); HEMOGLOBIN 10.7 gm/dL (14.0-18.0); MCH 30.1 pg (26.0-34.0); MCHC 32.6 g/dL (28.0-37.0); MCV 92.2 fL (80.0-100.0); MPV 7.2 fl. (7.2-11.1); RBC 3.57 mil/uL (4.50-6.00); RDW-CV 17.3 % (10.5-14.5); WBC 11.1 thou/uL (4.0-11.0)
[2018-07-18 12:13] LABS: CALCIUM 8.6 mg/dL (8.5-10.1); CREATININE 2.6 mg/dL (0.6-1.3); POTASSIUM 4.7 mmol/L (3.5-5.1)
== END ==
LOC: M.LAB 11:39
PROVIDERS: Internal Medicine Cardiovascular Disease
DX: I11.0 Hypertensive heart disease with heart failure (principal); I50.30 Unspecified diastolic (congestive) heart failure; J18.9 Pneumonia, unspecified organism; E11.9 Type 2 diabetes mellitus without complications; Z87.891 Personal history of nicotine dependence

== ENCOUNTER 2018-10-04 16:12 | Inpatient (IN) | payer OTHER ==
[~2018-10-04] VITALS: Ht 170.2 cm; Wt 86.6 kg
--- NOTE | ~2018-10-04 | CON ---
[address] [address] CONSULTATION Name: ALLEYTeodoroSRINIVASA Room: [address] ADM IN M.R.#: [id number] Admission: 10/04/18 Attend Phys: Cleveland Guzman MD Discharge: Date of : 33 Report #: [id number] THIS REPORT FOR: //name// CC: Franklin Guzman DATE OF SERVICE: 10/06/2018 HISTORY OF PRESENT ILLNESS: This is an 82-year-old male patient who was evaluated by me for an episode of syncope. I briefly saw him today in x-ray and talked to Dr. Dunbar and we will see him in more detail tomorrow. He tells me that he had a head injury. He indicated it was several months ago. He saw somebody outside this hospital. They thought he had a blood clot, but they did not think any further workup or management is needed. No surgery was done. He had a focal seizure on the left side. They gave him anticonvulsant for 6 months and then, he did not have any problem. He had an episode, which he said he just passed out for a few seconds. Nobody know what his pulse or blood pressure or blood sugar was at that time. He did not have any tongue biting or tonic-clonic activity. REVIEW OF SYSTEMS: Positive for COPD, question of stroke, diabetes, hypertension. Fourteen-point review of system was carried out and that was his relevant 14-point review of system. PAST MEDICAL HISTORY: Positive for prostate surgery, knee surgeries, IV contrast dye. FAMILY HISTORY: Negative for early age stroke. SOCIAL HISTORY: He does not smoke anymore. PHYSICAL EXAMINATION: Indicates he is alert, responsive, able to follow simple command. His speech looks intact. He is oriented. His cranial nerve examination 2-12 looks unremarkable. His neuromuscular examination looks symmetrical. He has no cerebellar sign. There is no carotid bruit. Pulses are difficult to feel. No respiratory difficulty, no rhonchi. His hearing and vision looks adequate. He has no thyroid mass. Blood pressure is 136/73, respirations 18, pulse is 72, temperature is 97.3. LABORATORY DATA: His white count is 11.7. His sodium is 140. His GFR is only 16. His MRI was reviewed and that does not appear to be showing any acute changes, but he has a history of subdural, which he knows he does. That actually has diminished in size. IMPRESSION: It is not possible to tell what the etiology of the patient's spell is. It does not look like a typical seizure, [place] [address] CONSULTATION Name: MELANIESRINIVASA Room: [address] IN M.R.#: [id number] Admission: 10/04/18 Attend Phys: Cleveland Guzman MD Discharge: Date of : 33 Report #: [id number] RECOMMENDATIONS: 1. EEG. 2. Recommend cardiac workup to make sure there is no etiology there. 3. Systemic workup as per yourself to exclude any other etiology. 4. We will look at this workup and see what it shows and decide about the further management. Thank you very much for this referral. By: 1616 [id number] Simmons MD /nt
--- NOTE | ~2018-10-04 | EEG ---
[address] [address] EEG STUDY REPORT Name: SRINIVASA NAVARRO Room: [address] IN M.R.#: [id number] Admission: 10/04/18 Attend Phys: Cleveland Guzman MD Discharge: Date of : 33 Report #: [id number] THIS REPORT FOR: //name// CC: Franklin Guzman DATE OF SERVICE: 10/06/2018 This patient had an episode of syncope. He has prior history of a subdural hematoma. EEG was done to evaluate the patient for seizures. TECHNIQUE: EEG was done by placing the electrodes by standard 10-20 system of electrode placement. Both referential and sequential montages were used for recording. Background activity in this patient's EEG is about 9 Hz and 30 microvolts. The patient went to sleep and that is associated with bilaterally symmetrical sleep spindle and vertex sharp waves. Throughout the record, no active epileptiform activity was noted. IMPRESSION: This patient's EEG is intermixed with some theta range slowing. That is a nonspecific abnormality which can occur with drowsiness, effect of psychotropic medication, etc. No active epileptiform activity was noticed. Thank you very much for this referral. By: 0836 [id number] Simmons MD /nt
[~2018-10-04 16:12] MED LIST changes: -CINNAMON PLUS1 EACH PO; -TYLENOL EXTRA500 MG PO
[2018-10-04 16:18] VITALS: BP 156/49
[2018-10-04] MEDS ORDERED: CINNAMON PLUS1 EACH PO (16:23)
[2018-10-04 16:44] LABS: HEMATOCRIT 32.7 % (42.0-52.0); HEMOGLOBIN 10.9 gm/dL (14.0-18.0); MCH 30.3 pg (26.0-34.0); MCHC 33.3 g/dL (28.0-37.0); MPV 7.6 fl. (7.2-11.1); NUCLEATED RBCS 0 /100WBC; PLATELET COUNT* 230 thou/uL (150-400); RBC 3.59 mil/uL (4.50-6.00); RDW-CV 15.9 % (10.5-14.5); WBC 11.1 thou/uL (4.0-11.0)
[2018-10-04 16:58] LABS: ABSOLUTE EOSINOPHILS 0.2 thou/uL (0.0-0.7); ABSOLUTE LYMPHOCYTES 0.6 thou/uL (0.8-5.3); ABSOLUTE MONOCYTES 0.3 thou/uL (0.0-1.2); PLATELET ESTIMATE ADEQUATE
[2018-10-04 17:02] LABS: INFLUENZA A ANTIGEN None Detected (None Detect); INFLUENZA B ANTIGEN None Detected (None Detect)
[2018-10-04 17:05] LABS: ANION GAP 8 mmol/L (7-16); BUN 64 mg/dL (7-18); CALCIUM 8.3 mg/dL (8.5-10.1); CHLORIDE 104 mmol/L (98-107); CO2 24 mmol/L (21-32); CREATININE 2.5 mg/dL (0.6-1.3); GLUCOSE 234 mg/dL (70-99); POTASSIUM 5.4 mmol/L (3.5-5.1); SODIUM 136 mmol/L (136-145)
[2018-10-04 17:06] LABS: APTT 30.3 Seconds (25.0-31.3); PROTIME 10.1 Seconds (9.20-11.50)
[2018-10-04 17:16] LABS: ALBUMIN 3.1 g/dL (3.4-5.0); ALKALINE PHOSPHATASE 80 U/L (46-116); NT-PRO BRAIN NAT PEPTIDE 647 pg/mL (<300); SGOT 18 U/L (15-37); SGPT 17 U/L (30-65); TOTAL BILIRUBIN 0.2 mg/dL (<0.1-1.0); TOTAL PROTEIN 5.9 g/dL (6.4-8.2); TROPONIN-I LEVEL <0.06 ng/mL (<0.06)
[2018-10-04 17:49] VITALS: BP 169/58
[2018-10-04 18:23] VITALS: BP 165/52
[2018-10-04 21:00] VITALS: BP 145/52
[2018-10-05 08:17] VITALS: BP 144/45
--- NOTE | 2018-10-05 12:16 | EKG ---
[place] [address] ELECTROCARDIOGRAM REPORT Name: SRINIVASA NAVARRO Room: [address] ADM IN M.R.#: [id number] Admission: 10/04/18 Attend Phys: Cleveland Guzman MD Discharge: Date of : 33 Report #: [id number] THIS REPORT FOR: //name// [facility] ED Test Date: 2018-10-04 Test Time: 16:21:03 Pat Name: SRINIVASA NAVARRO Department: Room: [facility] Gender: M Health Unit Supervisor: [place] : 1935 Requested By: Stephane Melton Order Number: [id number] MD: Flynn Wagner Measurements Intervals [place] Rate: 63 P: 39 VT: 195 QRS: -26 QRSD: 152 T: 146 QT: 445 QTc: 456 Interpretive Statements Sinus rhythm Probable left atrial enlargement Left bundle branch block Compared to ECG 07/07/2018 13:58:58 No significant changes Electronically Signed On 10-05-2018 12:16:06 GAS WELL DRILLING MANAGER by Flynn Wagner [email or web address] <ELECTRONICALLY SIGNED> By: Flynn Wagner MD, FACC 10/05/18 1216 1621 1621 Flynn Wagner MD, [facility] /EPI
[2018-10-05 16:00] VITALS: BP 112/41
[2018-10-05 22:00] VITALS: BP 139/61
[2018-10-06 05:03] LABS: HEMATOCRIT 32.3 % (42.0-52.0); HEMOGLOBIN 10.9 gm/dL (14.0-18.0); MCH 30.3 pg (26.0-34.0); MCHC 33.7 g/dL (28.0-37.0); MCV 89.8 fL (80.0-100.0); MPV 7.2 fl. (7.2-11.1); RBC 3.6 mil/uL (4.50-6.00); RDW-CV 15.5 % (10.5-14.5)
[2018-10-06 05:25] LABS: ALBUMIN 2.8 g/dL (3.4-5.0); CALCIUM 8.4 mg/dL (8.5-10.1); CREATININE 3.3 mg/dL (0.6-1.3); POTASSIUM 4.5 mmol/L (3.5-5.1); TOTAL BILIRUBIN 0.4 mg/dL (<0.1-1.0); TOTAL PROTEIN 6.3 g/dL (6.4-8.2)
[2018-10-06 08:30] VITALS: BP 151/66
[2018-10-06 13:22] LABS: ABSOLUTE BASOPHILS 0.1 thou/uL (0.0-0.2); ABSOLUTE EOSINOPHILS 0.7 thou/uL (0.0-0.7); ABSOLUTE LYMPHOCYTES 0.7 thou/uL (0.8-5.3); ABSOLUTE MONOCYTES 0.7 thou/uL (0.0-1.2); ABSOLUTE NEUTROPHILS 9.4 thou/uL (1.6-8.1); BASOPHILS 0.9 %; EOSINOPHILS 5.7 %; HEMATOCRIT 37.1 % (42.0-52.0); HEMOGLOBIN 12.1 gm/dL (14.0-18.0); LYMPHOCYTES 6.2 %; MCH 29.8 pg (26.0-34.0); MCHC 32.8 g/dL (28.0-37.0); MCV 91.1 fL (80.0-100.0); MONOCYTES 6.3 %; MPV 7.9 fl. (7.2-11.1); NUCLEATED RBCS 0 /100WBC; PLATELET COUNT* 241 thou/uL (150-400); POLYS 80.9 %; RBC 4.07 mil/uL (4.50-6.00); RDW-CV 15.8 % (10.5-14.5); WBC 11.7 thou/uL (4.0-11.0)
--- NOTE | 2018-10-06 13:36 | CON ---
[address] [address] CONSULTATION Name: SRINIVASA NAVARRO Room: [address] IN M.R.#: [id number] Admission: 10/04/18 Attend Phys: Cleveland Guzman MD Discharge: Date of : 33 Report #: [id number] THIS REPORT FOR: //name// CC: Franklin Guzman REASON FOR CONSULTATION: Abnormal chest x-ray. HISTORY OF PRESENT ILLNESS: This is an 82-year-old male patient with a background history of diabetes mellitus and hypertension. He admitted through the Emergency Room because of shortness of breath and pain on the left scapula. He denied any history of fever or chills. He lives in assisted living facility. He reported that he has recurrent pneumonia. He tells me he was treated with azithromycin couple of weeks ago. When he takes azithromycin, his symptoms improved, but it quickly comes back. He reported history of wheezing and cough, although the cough is dry, not producing any sputum. He received 2 rounds of azithromycin and steroids with some improvement. He denied any sick contact or recent travel. He denied any lower extremity edema. He denied any chest pain, headache, blurring of vision, sore throat, nasal discharge or obstruction or sputum production and he reported occasionally he would have a wheeze. Although he is not a smoker, but he told me he smoked for almost 60 plus years, he quit around 10 years ago. He does not wear oxygen. He is not on any inhalers at home. PAST MEDICAL HISTORY: He has a history of hypertension, diabetes mellitus, history of smoking, although he has no history of COPD, history of recurrent pneumonia, gout. PAST SURGICAL HISTORY: Hemorrhoid surgery, prostate surgery, knee surgery, eye surgery. ALLERGIES: IV CONTRAST. FAMILY HISTORY: Reviewed with the patient, noncontributory to the above chief complaint. SOCIAL HISTORY: He is , lives with assisted living. 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 He quit smoking around 10 years ago. He does not drink alcohol. He smoked for almost 70 years. HOME MEDICATIONS: He is on lisinopril, Coreg, allopurinol, prednisone daily. According to the record, he is on DuoNebs, Lasix daily, methotrexate, ibuprofen. REVIEW OF SYSTEMS: Twelve-point review of system reviewed with the patient and negative other than what was mentioned above. PHYSICAL EXAMINATION: [place] [address] CONSULTATION Name: SRINIVASA NAVARRO Room: [address] IN [facility]#: [id number] Admission: 10/04/18 Attend Phys: Cleveland Guzman MD Discharge: Date of : 33 Report #: [id number] VITAL SIGNS: He was on room air, his O2 saturation 96%, his blood pressure 139/61, breathing 20 times a minute, pulse rate of 65, temperature 36.6. GENERAL: Looks his stated age, awake, alert, oriented, not in pain, not in distress, speaks in full sentences. HEENT: Head normocephalic, atraumatic. Pupils are reactive to light. Oral cavity: Moist mucous membrane. Mallampati of 2. External ears look healthy and normal. NECK: Supple. No palpable lymph nodes. No palpable thyroid. Trachea is central. CHEST: On auscultation, diminished air movement bilaterally, mostly on the left side with prolonged expiratory phase. No definite wheezes. HEART: S1, S2, no murmur. ABDOMEN: Benign, soft, lax, nontender, positive bowel sounds. EXTREMITIES: Lower extremity, trace edema. No calf tenderness. SKIN: Normal for age and race, no rash. NEUROLOGIC: Moving 4 extremities spontaneously. No focal weakness. PSYCHIATRIC: Mood and affect, good insight and judgment. LYMPHATICS: No palpable lymph node. LABORATORY DATA: His white blood count is 11.1, hemoglobin 10.9 and platelets of 230. His INR is 1. His creatinine is 3.3 compared to 2.5 upon hospitalization, potassium 4.5. BNP slightly elevated. His influenza A and B screen none detected. His chest x-ray demonstrated obliteration of the left costophrenic angle, which is new compared to the last chest x-ray. CURRENT MEDICATIONS: Reviewed. He is on levofloxacin, DuoNeb every 6 hours, Zosyn, Mucinex, Lovenox, Lasix p.o. IMPRESSION: 1. Shortness of breath. 2. Pulmonary infiltrate. 3. Acute renal failure on chronic. 4. History of smoking, presumed chronic obstructive pulmonary disease. PLAN: 1. At this point, we are going to proceed with a CT scan of the chest for further evaluation of the left lower lobe infiltrate. It will be done without contrast given his kidney function and CONTRAST ALLERGY. 2. He will be on scheduled nebulization treatments. I am going to give him a tapering dose of p.o. steroids, continue antibiotic as you are doing at this point, de-escalate according to cultures. 3. Monitor O2 sats, although currently he is not needing any oxygen. 4. Discussed with the patient, we will follow along with you. [address] [address] CONSULTATION Name: SRINIVASA NAVARRO Room: [address] IN [facility].#: [id number] Admission: 10/04/18 Attend Phys: Cleveland Guzman MD Discharge: Date of : 33 Report #: [id number] Thank you for the consultation. <ELECTRONICALLY SIGNED> By: Bonita Ramírez MD 10/06/18 1336 1119 1145Bonita Ramírez MD /nt
[2018-10-06 13:42] LABS: ALBUMIN 3.3 g/dL (3.4-5.0); CALCIUM 9.1 mg/dL (8.5-10.1); CREATININE 3.6 mg/dL (0.6-1.3); POTASSIUM 4.7 mmol/L (3.5-5.1); TOTAL BILIRUBIN 0.6 mg/dL (<0.1-1.0); TOTAL PROTEIN 6.7 g/dL (6.4-8.2)
[2018-10-06 14:34] LABS: ESR (SEDRATE) 76 mm/hr (0-20)
[2018-10-06 15:58] VITALS: BP 136/73
--- NOTE | 2018-10-06 16:40 | EKG ---
[place] [address] ELECTROCARDIOGRAM REPORT Name: ALLEYCLEMENTE ValerioSRINIVASA Room: [address] ADM IN M.R.#: [id number] Admission: 10/04/18 Attend Phys: Cleveland Guzman MD Discharge: Date of : 33 Report #: [id number] THIS REPORT FOR: //name// [facility] Test Date: 2018-10-06 Test Time: 13:03:34 Pat Name: SRINIVASA NAVARRO Department: Room: [address] Gender: M Gray Tender: [facility] : 1935 Requested By: Jonah Dunbar Order Number: [id number] MD: Pawan Sadler Measurements Intervals [place] Rate: 59 P: 40 GA: 185 QRS: -24 QRSD: 154 T: 140 QT: 488 QTc: 484 Interpretive Statements Sinus rhythm Left bundle branch block Compared to ECG 10/04/2018 16:21:03 No significant changes Electronically Signed On 10-06-2018 16:40:13 PAPER CORE MACHINE OPERATOR by Pawan Sadler [email or web address] <ELECTRONICALLY SIGNED> By: Pawan Sadler MD, [facility] 10/06/18 1640 130 02 Pawan Sadler MD, FAC /EPI
[2018-10-06 20:05] VITALS: BP 139/64
[2018-10-07 00:02] VITALS: BP 144/50
[2018-10-07 04:45] LABS: ALBUMIN 2.8 g/dL (3.4-5.0); CALCIUM 8.5 mg/dL (8.5-10.1); CREATININE 3.1 mg/dL (0.6-1.3); POTASSIUM 4.2 mmol/L (3.5-5.1); TOTAL BILIRUBIN 0.4 mg/dL (<0.1-1.0); TOTAL PROTEIN 6.5 g/dL (6.4-8.2)
[2018-10-07 09:50] VITALS: BP 154/70
[2018-10-07 12:00] VITALS: BP 144/70
[2018-10-07 20:00] VITALS: BP 181/73
[2018-10-07 22:41] LABS: URINE BILIRUBIN NEGATIVE (Negative); URINE BLOOD TRACE (Negative); URINE CLARITY CLEAR; URINE COLOR YELLOW; URINE GLUCOSE-RANDOM NEGATIVE (Negative); URINE KETONES NEGATIVE (Negative); URINE LEUKOCYTES-REFLEX NEGATIVE (Negative); URINE NITRITE-REFLEX NEGATIVE (Negative); URINE PROTEIN NEGATIVE (Negative); URINE UROBILINOGEN 0.2 E.U./dl (0.2-1.0)
[2018-10-08 04:08] LABS: ALBUMIN 2.8 g/dL (3.4-5.0); CALCIUM 8.7 mg/dL (8.5-10.1); CREATININE 2.6 mg/dL (0.6-1.3); PHOSPHORUS* 3.9 mg/dL (2.5-4.9); POTASSIUM 4.3 mmol/L (3.5-5.1)
--- NOTE | 2018-10-08 09:59 | CON ---
[address] [address] CONSULTATION Name: ALLEYTeodoroSRINIVASA Room: [address] ADM IN M.R.#: [id number] Admission: 10/04/18 Attend Phys: Cleveland Guzman MD Discharge: Date of : 33 Report #: [id number] THIS REPORT FOR: //name// CC: Franklin Guzman DATE OF SERVICE: 10/06/2018 REASON FOR CONSULTATION: Acute kidney injury. REQUESTING PHYSICIAN: Dr. Dunbar. HISTORY OF PRESENT ILLNESS: The patient is a very pleasant 82-year-old gentleman admitted to the hospital on 10/04/2018 with complaints of some shortness of breath and pain in his left scapular area. The patient apparently has history of recurrent pneumonia and he was started on Zosyn and Levaquin just to make sure we are not missing pneumonia. He had a consultation done by Dr. Ramírez, key account executive. Dr. Ramírez ordered CT scan. CT scan was done this morning and revealed a small left pleural effusion, but no definite pulmonary infiltrate with compressive atelectasis in the left lung base. Also left kidney atrophy was noted. The patient's creatinine reaches around 2 at a baseline, went up to 3.3 this morning. This morning when I was walking into the room to examine the patient, nurse reported that he just had some dizzy spell and not feeling well. When I talked to the patient, he was lying in the bed and said he is not feeling well. He gets some left groin pain and feels very dizzy. He lost control of his bladder, but never passed out according to the patient. His blood pressure was 145/60 and heart rate was in his 50s. PAST MEDICAL HISTORY: Significant for: 1. Chronic kidney disease stage 3. 2. History of hyponatremia. 3. History of pneumonia. 4. History of subdural hemorrhage. 5. History of multiple falls. 6. History of hypertension. MEDICATIONS: Prior to admission reviewed. From my standpoint, he was on lisinopril 10 mg a day, also takes methotrexate 2.5 mg once a week and prednisone 5 mg a day, Coreg 25 mg twice a day and furosemide 40 mg a day. Here in the hospital, he was started on antibiotics, Zosyn and Levaquin. He was on furosemide and Coreg. His prednisone was stopped. SOCIAL HISTORY: No current tobacco or alcohol abuse. [place] [address] CONSULTATION Name: MELANIESRINIVASA Room: [address] IN [facility]#: [id number] Admission: 10/04/18 Attend Phys: Cleveland Guzman MD Discharge: Date of : 33 Report #: [id number] FAMILY HISTORY: Noncontributory to this 82-year-old gentleman. REVIEW OF SYSTEMS: Positive for his dizziness, weakness, left groin pain as described earlier. He also had this left scapular pain, which resolved now. Denies chest pain. Denies shortness of breath. No fever, no chills, no cough, no blood in stool or urine. PHYSICAL EXAMINATION: GENERAL: He is awake and alert. VITAL SIGNS: Blood pressure 150/50, heart rate 60, afebrile. HEENT: Pupils round. NECK: Supple. LUNGS: Clear. CARDIOVASCULAR: Regular rate. ABDOMEN: Soft. EXTREMITIES: His left leg is tender when we try to passively move it and there is hip joint tenderness and tenderness throughout the leg. His pulses are decreased, but still palpable. LABORATORY DATA: Lab report hemoglobin 10.9, white count 10.0. His urine not received. His serum sodium 139, potassium 4.5, chloride 104, carbon dioxide 24, BUN 66, creatinine 3.3. ASSESSMENT: 1. Acute kidney injury, etiology not clear. 2. Dizziness. Workup is in progress. 3. Left groin pain. Workup is in progress. 4. History of hypertension. PLAN: 1. We will keep holding his lisinopril. 2. We will stop his Lasix. 3. We will give him 1 liter of saline in order to some chemistries including his troponin and CPK. Also order urine for eosinophils. Also, I would like to discuss with the key account executive whether or not we need to continue with antibiotics as there is no obvious pneumonia on CT scan. Thank you very much for asking my opinion. <ELECTRONICALLY SIGNED> By: Marcellus Lan MD 10/08/18 0959 1258 [id number] Lan MD /NEREYDA
[2018-10-08 12:07] VITALS: BP 148/68
[2018-10-08 12:14] VITALS: BP 156/64
[2018-10-08 12:46] LABS: SMEAR FOR EOSINOPHILS Rare per HPF
[2018-10-08 13:35] VITALS: BP 156/64
[2018-10-08 13:54] VITALS: BP 156/64
[2018-10-08] MEDS ORDERED: TYLENOL EXTRA500 MG PO (15:20)
== END 2018-10-08 15:00 | disposition home health service (06) | DRG 100 ==
LOC: M.ERS 16:12 → M.TBA-ER 17:21 → M.3W 17:21
PROVIDERS: Family Medicine; Internal Medicine; Internal Medicine Nephrology; Nurse Practitioner Family
DX: R56.9 Unspecified convulsions (principal); N17.0 Acute kidney failure with tubular necrosis; E44.1 Mild protein-calorie malnutrition; I65.23 Occlusion and stenosis of bilateral carotid arteries; R55 Syncope and collapse; M10.9 Gout, unspecified; D50.9 Iron deficiency anemia, unspecified; G31.84 Mild cognitive impairment of uncertain or unknown etiology; J44.9 Chronic obstructive pulmonary disease, unspecified; E11.22 Type 2 diabetes mellitus with diabetic chronic kidney disease; R10.32 Left lower quadrant pain; I12.9 Hypertensive chronic kidney disease with stage 1 through stage 4 chronic kidney disease, or unspecified chronic kidney disease; N18.3 Chronic kidney disease, stage 3 (moderate); Z79.899 Other long term (current) drug therapy; Z79.84 Long term (current) use of oral hypoglycemic drugs; Z88.8 Allergy status to other drugs, medicaments and biological substances; Z91.041 Radiographic dye allergy status; Z87.891 Personal history of nicotine dependence; Z68.29 Body mass index [BMI] 29.0-29.9, adult

== ENCOUNTER → 2019-04-13 | Outpatient (CLI) | payer OTHER ==
[~2019-04-13] MED LIST changes: +CINNAMON PLUS1 EACH PO; +TYLENOL EXTRA500 MG PO
[2019-04-13 17:45] LABS: CALCIUM 8.7 mg/dL (8.5-10.1); POTASSIUM 4.7 mmol/L (3.5-5.1)
== END ==
LOC: M.LAB 16:46
PROVIDERS: Internal Medicine Cardiovascular Disease
DX: I11.0 Hypertensive heart disease with heart failure (principal); I50.33 Acute on chronic diastolic (congestive) heart failure

== ENCOUNTER → 2019-05-12 | Outpatient (CLI) | payer OTHER ==
[2019-05-12 16:52] LABS: CALCIUM 8.7 mg/dL (8.5-10.1); CREATININE 2.4 mg/dL (0.6-1.3); POTASSIUM 5.1 mmol/L (3.5-5.1)
== END ==
LOC: M.LAB 15:59
PROVIDERS: Internal Medicine Cardiovascular Disease
DX: I11.0 Hypertensive heart disease with heart failure (principal); I50.33 Acute on chronic diastolic (congestive) heart failure; E11.9 Type 2 diabetes mellitus without complications; Z87.891 Personal history of nicotine dependence

== ENCOUNTER → 2019-06-01 | Outpatient (CLI) | payer OTHER ==
[2019-06-01 14:23] LABS: CALCIUM 8.8 mg/dL (8.5-10.1); CREATININE 2.2 mg/dL (0.6-1.3); POTASSIUM 4.5 mmol/L (3.5-5.1)
== END ==
LOC: M.LAB 14:01
PROVIDERS: Registered Nurse
DX: I50.32 Chronic diastolic (congestive) heart failure (principal)

== ENCOUNTER 2020-01-08 11:53 | Emergency (ER) | payer OTHER ==
[~2020-01-08] VITALS: Ht 170.2 cm; Wt 85.7 kg
[2020-01-08] MEDS ORDERED: NORVASC 2.5 MG2.5 M1 PO (12:07)
[2020-01-08] MEDS ORDERED: ASA81BEC PO (12:07)
[2020-01-08] MEDS ORDERED: CHILDREN'S ZYRT10 M1 PO (12:07)
[2020-01-08] MEDS ORDERED: DEPAKOTE ER500 M1 PO ×2 (12:08)
[2020-01-08] MEDS ORDERED: FLONASE 0.05%50 MCG NARES (12:08)
[2020-01-08] MEDS ORDERED: MUCINEX600 MG PO (12:09)
[2020-01-08] MEDS ORDERED: MAGNESIUM250 M1 PO (12:09)
[2020-01-08] MEDS ORDERED: NOVOLOG FL100 UNIT/M SUBQ (12:10)
[2020-01-08] MEDS ORDERED: KLOR-CON 1010 MEQ PO (12:11)
[2020-01-08] MEDS ORDERED: RISPERDAL 1 MG T1 MG PO (12:11)
[2020-01-08] MEDS ORDERED: PREDNISONE 5 MG5 M1 PO (12:11)
[2020-01-08] MEDS ORDERED: FLEXERIL PO (12:12)
[2020-01-08] MEDS ORDERED: ALPRAZOLAM XR3 MG PO (12:12)
[2020-01-08] MEDS ORDERED: VITAMIN D35000 UNI2 PO (12:12)
[2020-01-08] MEDS ORDERED: COLACE 100 MG100 MG PO (12:13)
[2020-01-08] MEDS ORDERED: MAPAP325 MG PO (12:14)
[2020-01-08] MEDS ORDERED: ADVIL200 M3 PO (12:14)
[2020-01-08] MEDS ORDERED: MIRALAX17 GM PO (12:15)
[2020-01-08] MEDS ORDERED: PREPARATION H C54 GM RECTAL (12:15)
[2020-01-08] MEDS ORDERED: TRAZODONE 150150 M1 PO (12:16)
[2020-01-08 12:28] LABS: HEMATOCRIT 30.5 % (42.0-52.0); HEMOGLOBIN 10.1 gm/dL (14.0-18.0); MCH 28.1 pg (26.0-34.0); MCHC 33.1 g/dL (28.0-37.0); MCV 84.9 fL (80.0-100.0); MPV 7.6 fl. (7.2-11.1); NUCLEATED RBCS 0 /100WBC; PLATELET COUNT* 266 thou/uL (150-400); RBC 3.59 mil/uL (4.50-6.00); RDW-CV 16.7 % (10.5-14.5); WBC 11.1 thou/uL (4.0-11.0)
[2020-01-08 12:37] LABS: CREATININE 2.4 mg/dL (0.6-1.3); POTASSIUM 4.3 mmol/L (3.5-5.1); PROTIME 10.3 Seconds (9.20-11.50)
[2020-01-08 12:46] LABS: INFLUENZA A ANTIGEN Negative (Negative); INFLUENZA B ANTIGEN Negative (Negative)
[2020-01-08 12:48] LABS: ALBUMIN 2.2 g/dL (3.4-5.0); TOTAL BILIRUBIN 0.2 mg/dL (<0.1-1.0); TOTAL PROTEIN 6.5 g/dL (6.4-8.2)
[2020-01-08 13:30] LABS: ABSOLUTE BASOPHILS 0.2 thou/uL (0.0-0.2); ABSOLUTE EOSINOPHILS 0.6 thou/uL (0.0-0.7); ABSOLUTE LYMPHOCYTES 1.4 thou/uL (0.8-5.3); ABSOLUTE MONOCYTES 1.1 thou/uL (0.0-1.2); ABSOLUTE NEUTROPHILS 7.8 thou/uL (1.6-8.1); ATYPICAL LYMPHS 2 %; METAMYELOCYTES 6 %; MYELOCYTES 1 %; TOXIC GRANULATION 2+
[2020-01-08 13:31] LABS: HYPOCHROMASIA 1+; MICROCYTES 1+
[2020-01-08 13:32] LABS: PLATELET ESTIMATE ADEQUATE
[2020-01-08] MEDS ORDERED: AUGMENTIN 875-1 EACH PO (13:46)
[2020-01-08 14:26] VITALS: BP 142/70
--- NOTE | 2020-01-09 12:52 | EKG ---
[place] [address] ELECTROCARDIOGRAM REPORT Name: SRINIVASA NAVARRO Room: [facility]#: [id number] Admission: 01/08/20 Attend Phys: Discharge: 01/08/20 Date of : 31 Date of Service: 01/08/20 1229 Report #: [id number] THIS REPORT FOR: //name// [facility] ED Test Date: 2020-01-08 Test Time: 12:29:23 Pat Name: SRINIVASA NAVARRO Department: Room: Gender: [employer] Department Supervisor: FORD : 1935 Requested By: Camacho Palomino Order Number: [id number] MD: Davie Ennis Measurements Intervals [place] Rate: 66 P: 41 [place]: 160 QRS: -8 QRSD: 142 T: 139 QT: 443 QTc: 465 Interpretive Statements Sinus rhythm Left bundle branch block Compared to ECG 10/06/2018 13:03:34 No significant changes Electronically Signed On 01-09-2020 12:51:42 MURAL PAINTER by Davie Ennis [email or web address] <ELECTRONICALLY SIGNED> By: Davie Ennis MD, FAC 01/09/20 1251 1229 1229 Davie Ennis MD, [facility] /EPI
== END 2020-01-08 14:27 | disposition home or self-care (01) ==
LOC: M.ERS 11:53
PROVIDERS: Emergency Medicine
DX: J18.9 Pneumonia, unspecified organism (principal); L03.116 Cellulitis of left lower limb; L03.115 Cellulitis of right lower limb; I10 Essential (primary) hypertension; E11.9 Type 2 diabetes mellitus without complications; M10.9 Gout, unspecified; Z91.041 Radiographic dye allergy status; Z88.1 Allergy status to other antibiotic agents; Z88.8 Allergy status to other drugs, medicaments and biological substances